=== PATIENT | male | born 1960 | race Caucasian/White ===

== ENCOUNTER 2019-12-11 17:49 | Emergency (ER) | payer BC ==
[~2019-12-11] VITALS: Ht 172.7 cm; Wt 83.9 kg
[2019-12-11 18:04] VITALS: BP 136/87; Ht 172.7 cm; Wt 83.9 kg
== END 2019-12-11 19:00 | disposition home or self-care (01) ==
LOC: ED 17:49
DX: B34.9 Viral infection, unspecified (principal); Z20.828 Contact with and (suspected) exposure to other viral communicable diseases
CPT/HCPCS: 80201; 87804; U0002